=== PATIENT | female | born 1980 ===

== ENCOUNTER 2021-08-27 18:09 | Emergency (ER) | payer SELFPAY ==
--- NOTE | 2021-08-27 18:20 | NUR ---
Zane ford in EDM - 08/27/21 at 1838 by [id number] During triaged family and patient refused to answer questions to get complete Hx. Patient and family did not want any test done after ERMD assess patient and walked out of ER.
--- NOTE | 2021-08-27 18:43 | NUR ---
Patient was seen by EDUARDOD outside waiting room due patient recieving news that her family member inside ER pass away.
== END 2021-08-27 18:48 | disposition left against medical advice (07) ==
LOC: ER 18:11
DX: Z53.21 Procedure and treatment not carried out due to patient leaving prior to being seen by health care provider (principal)